=== PATIENT | male | born 1990 | race Caucasian/White ===

== ENCOUNTER 2020-01-02 23:23 | Emergency (ER) | payer BC ==
[2020-01-02] MEDS ORDERED: Famotidine 20 MG/2 ML SDV IVPUSH ONE (23:41)
[2020-01-02] MEDS ORDERED: diphenhydrAMINE 50 MG/ML SDV IVPUSH ONE (23:41)
[2020-01-02] MEDS ORDERED: methylPREDNISolone Sodium Succinate 125 MG/2 ML SDV IVPUSH ONE (23:41)
[2020-01-02] MEDS ORDERED: Sodium Chloride 0.9% 1,000 ML IV SCH (23:45)
--- NOTE | 2020-01-02 23:52 | EDM.PDOC ---
ED HPI GENERAL MEDICAL PROBLEM - General Chief Complaint: Allergic Reaction Stated Complaint: ALLERGIC REACTION Time Seen by Provider: 01/02/20 23:30 Source of Information: Reports: Patient, Family (spouse) History Limitations: Reports: No Limitations - History of Present Illness INITIAL COMMENTS - FREE TEXT/NARRATIVE: 29 year old male presents to the ED with acute onset of allergic reaction with generalized pruritus and erythema and 1 urticarial wheal on his left knee. Patient was prescribed Doxycycline and Benzatonate 200 mg tablets earlier today for persistent cough. He has an associated fever bodyaches headache and sounds like he has influenza symptoms but was not tested for this. Her studies been coughing paroxysmal he almost to the point of passing out since mid-September. This was the reason I believe that the provider decided to try him on a course of doxycycline. Doesn't remember being on either one of these medications. He states he developed symptoms within about 20 minutes of taking both medications at the same time. I looked in both upper and both can cause of course and allergic response and particularly the Benzatonate can cause a hypersensitivity reaction with generalized pruritus and erythema. He states he has itching in the back of his throat and up into his eustachian tubes in his ears. Minimal nasal coryza no trouble swallowing and no trouble breathing. He did have a breathing treatment at the clinic earlier today which is about 4 hours ago. He has no history of any allergies in the past. He has not taken any medications prior to coming to the ED. Onset: Today Onset Date: 01/02/20 Onset Time: 22:50 Duration: Minutes: Location: Reports: Generalized (Generalized pruritus and erythema.) Quality: Reports: Other ( Itching in his throat and into his eustachian tubes generalized pruritus ) Severity: Moderate Improves with: Reports: None Worsens with: Reports: None Context: Reports: Other (TakenMedication 20-25 minutes before development of symptoms which she has not taken before. This included both). Denies: Activity , Exercise, Lifting, Sick Contact, Trauma Associated Symptoms: Reports: Cough, cough w sputum (On a cough since September worse the last 2 days and sounds more productive.), Fever/Chills (Any sputum), Headaches ( current temperature 37.4 but it was 103 earlier today.), Loss of Appetite, Malaise, Shortness of Breath, Weakness. Denies: Confusion, Chest Pain , Nausea/Vomiting, Rash, Seizure, Syncope Treatments FLAGMAN: Reports: Other (see below) (Had albuterol earlier today.) - Related Data Allergies Allergy/AdvReac Type Severity Reaction Status Date / Time No Known Allergies Allergy Verified 01/02/20 23:34 Home Meds: Home Meds Benzonatate [Tessalon Perle] 100 mg PO TID PRN 01/02/20 [History] Codeine/guaiFENesin [Robitussin AC] 5 ml PO Q4H PRN 01/02/20 [History] Doxycycline [Vibramycin] 100 mg PO BID 01/02/20 [History] Azithromycin [Zithromax] 250 mg PO DAILY #12 tab 01/03/20 [Rx] predniSONE [Prednisone] 20 mg PO ASDIRECTED #18 tablet 01/03/20 [Rx] Past Medical History Respiratory History: Reports: Other (See Below) (As had paroxysmal cough to the point of near syncope since mid-September when he 17. Does not have a history of asthma.) Social & Family History - Family History Family Medical History: Noncontributory - Tobacco Use Smoking Status *Q: Never Smoker Second Hand Smoke Exposure: No - Caffeine Use Caffeine Use: Reports: Coffee - Recreational Drug Use Recreational Drug Use: No - Living Situation & Occupation Living situation: Reports: Single Occupation: Unemployed ED ROS ALLERGIC REACTION - Review of Systems Review Of Systems: See Below Constitutional: Reports: Fever, Chills, Malaise, Weakness, Fatigue, Decreased Appetite HEENT: Reports: Other (Paroxysmal cough with mild sore throat.) Respiratory: Reports: Shortness of Breath, Cough. Denies: Wheezing, Pleuritic Chest Pain Cardiovascular: Reports: No Symptoms Endocrine: Reports: No Symptoms GI/Abdominal: Reports: No Symptoms Musculoskeletal: Reports: No Symptoms Skin: Reports: Pruritis, Erythema (Added within the last hour.) Neurological: Reports: No Symptoms ( Use erythema with occasional urticarial wheals within the last hour.) Psychiatric: Reports: No Symptoms Hematologic/Lymphatic: Reports: No Symptoms ED EXAM GENERAL NO PERIP PULSE - Physical Exam Exam: See Below Exam Limited By: No Limitations General Appearance: Alert, WD/WN, Mild Distress, Other (Current temperature is 37.4 and he does feel warmer than this. Heart rate was 90 at the bedside. Respiratory 19 with O2 sats of 96% on room air. BP 172/89.) Eye Exam: Bilateral Eye: Normal Inspection, PERRL Ears: Normal TMs Nose: Normal Inspection Throat/Mouth: Normal Inspection, Normal Lips, Normal Oropharynx, Other Head: Atraumatic (Uvula and floor of the mouth are normal.), Normocephalic Neck: Normal Inspection, Supple, Non-Tender, Full Range of Motion. No: Lymphadenopathy (L), Lymphadenopathy (R) Respiratory/Chest: No Respiratory Distress, Lungs Clear, Normal Breath Sounds, No Accessory Muscle Use. No: Rales, Rhonchi, Wheezing Cardiovascular: Normal Peripheral Pulses, Regular Rate, Rhythm, No Edema, No Gallop, No Murmur, No Rub GI/Abdominal: Normal Bowel Sounds, Soft, Non-Tender, No Organomegaly, No Abnormal Bruit, No Mass, Pelvis Stable, Other (Mildly obese.) Back Exam: Normal Inspection, Full Range of Motion. No: CVA Tenderness (L), CVA Tenderness (R) Extremities: Normal Inspection Neurological: Alert, Oriented, CN II-XII Intact, Normal Cognition Psychiatric: Anxious Skin Exam: Warm (Mildly anxious.), Dry, Intact, Erythema (Diffuse mild erythema. ), Other (High left medial knee.) Course - Vital Signs Last Recorded V/S: Last Vital Signs Temp 37.4 C 01/02/20 23:30 Pulse 90 01/02/20 23:30 Resp 19 01/02/20 23:30 BP 172/89 H 01/02/20 23:30 Pulse Ox 96 01/02/20 23:30 - Orders/Labs/Meds Meds: Medications Discontinued Medications Generic Name Dose Route Start Last Admin Trade Name Steve PRN Reason Stop Dose Admin Dexamethasone 12 mg 01/02/20 23:53 01/03/20 00:03 Dexamethasone PO 01/02/20 23:54 12 mg ONETIME ONE Administration Diphenhydramine HCl 50 mg 01/02/20 23:41 01/03/20 00:20 Benadryl IVPUSH 01/02/20 23:42 Not Given ONETIME ONE Diphenhydramine HCl 50 mg 01/02/20 23:54 01/03/20 00:03 Benadryl PO 01/02/20 23:55 50 mg ONETIME ONE Administration Famotidine 20 mg 01/02/20 23:41 01/03/20 00:20 Pepcid IVPUSH 01/02/20 23:42 Not Given ONETIME ONE Famotidine 20 mg 01/02/20 23:54 01/03/20 00:03 Pepcid PO 01/02/20 23:55 20 mg ONETIME ONE Administration Sodium Chloride 1,000 mls @ 250 mls/hr 01/02/20 23:45 Normal Saline IV ASDIRECTED [facility] Methylprednisolone Sodium Succinate 125 mg 01/02/20 23:41 01/03/20 00:20 Solu-Medrol IVPUSH 01/02/20 23:42 Not Given ONETIME ONE - Radiology Interpretation Free Text/Narrative:: 29-year-old male presents to the ED with acute onset of allergic reaction symptoms after taking doxycycline-100mg and Bezatonate 200 mg tablet by mouth about 20 minutes before development of symptoms. Presents with generalized pruritus and erythema of his skin in a few hives scattered on his body particularly left medial knee. He doesn't remember being on either of these medications in the past. He was seen at the clinic earlier today and diagnosed with upper respiratory tract infection. He reports being ill for about 6 days with intermittent fever and worsening of cough. However reports a severe paroxysmal intermittent cough since mid-September often to the point of near syncope. History of asthma. Apparently he received an albuterol treatment at the clinic. At present he is showing only skin signs of allergic reaction lungs are clear to stage percussion without wheezing tongue and throat are normal. He is not hoarse. The plan was to give him intravenous Solu-Medrol, Pepcid, Benadryl but the nurses were unable to establish an IV and the patient declined further pokes. Therefore the medications will be given by mouth dexamethasone 12 mg by mouth with Benadryl 50 mg by mouth and Pepcid 20 mg by mouth. They will take much longer to work. Trade done in the ED and actually screen him for influenza as well. - Re-Assessments/Exams Free Text/Narrative Re-Assessment/Exam: 01/03/20 00:23 patient does not feel any worse in terms of throat closure or chest congestion or wheezing. Itching is slowly subsiding. Chest x-ray done portably reveals normal cardiac silhouette. There is no pulmonary infiltrates or pneumonia. There does appear to be a mild diffuse vascular congestion pattern. Influenza screen has returned as negative. Will monitor him in the ED for at least another half an hour to 45 minutes to ensure that his allergic responses coming under control. 01/03/20 00:44 He reports he continues to feel better not worse.Very mild pruritis in the back of his throat. I will therefore discharge him to home. Going to place him on Zithromax on a prolonged course of treatment due to suspect sinusitis with postnasal drip causing his paroxysmal cough. Due to fever and bronchitis symptoms I will treat him with 250 mils grams tablet once daily for the next 12 days. I'm also going to place him on prednisone 20 mg twice daily for 6 days then once in the morning for another 6 days to help reduce the severe paroxysmal cough. Advised that if he continues to cough paroxysmal course of oral inhaled corticosteroid such as Flovent 110 g per puff 2 puffs 4 times daily until the cough is gone for 3 days and then gradually wean off of the by 2 puffs every 2 days to alleviate irritant receptor formation causing paroxysmal severe cough to the point of syncope at times. Departure - Departure Time of Disposition: 00:52 Disposition: Home, Self-Care 01 Condition: Fair Clinical Impression: Allergic reaction to drug Qualifiers: Encounter type: initial encounter Qualified Code(s): T78.40XA - Allergy, unspecified, initial encounter - Discharge Information *PRESCRIPTION DRUG MONITORING PROGRAM REVIEWED*: Not Applicable *COPY OF PRESCRIPTION DRUG MONITORING REPORT IN PATIENT ERIK: Not Applicable Prescriptions: Azithromycin [Zithromax] 250 mg PO DAILY #12 tab predniSONE [Prednisone] 20 mg PO ASDIRECTED #18 tablet Instructions: Hives Referrals: Tonie Escobar PA-C [Primary Care Provider] - Forms: ED Department Discharge Additional Instructions: Evaluation the emergency room this morning in regards to development of an acute allergic response to medication taken 20 minutes prior to development of generalized itching and erythema or redness of the skin with a few hives. Largest in medications. It's unlikely to be the doxycycline causing the problem however I cannot be 100% sure of this. The Benzatonate cough tablet or Tessalon Perles is likely the culprit to have caused your allergic response. Influenza screen proved to be negative and chest x-ray is negative for pneumonia therefore you have a diagnosis of bronchitis. I agree with a course of antibiotic treatment likely due to sinus infection with postnasal drip continued to cause you to cough since September last year. Current fever is likely due to bronchitis for chest infection. Suggest treatment with steroid prednisone 20 mg in the morning with breakfast and with supper for 6 days and then once in the morning only for another 6 days. This is being used for 2 reasons able to bring the drug eruption under control and also help with your cough and inflammation of your upper airways. Suggest use of antibiotic Zithromax 250 mg tablet once daily for 12 days to clear up sinus infection as well as bronchitis. If you continue to cough after this then I would suggest follow-up with your personal care provider to obtain a steroid inhaler such as Flovent 110 g per puff and use 2 puffs 4 times daily until the cough goes away completely for 3 days and then gradually wean off the inhaler. The steroid inhalational treatment helps reduce the irritant receptors in the upper airway which caused you to cough so severely. However there is a really good chance that the oral steroids will reduce the inflammation and you may not need an inhaler. Sepsis Event Note - Evaluation Sepsis Screening Result: No Definite Risk - Focused Exam Date Exam was Performed: 01/05/20 Time Exam was Performed: 07:54
[2020-01-02] MEDS ORDERED: Dexamethasone 4 MG Tab PO ONE (23:53)
[2020-01-02] MEDS ORDERED: diphenhydrAMINE 50 MG Cap PO ONE (23:54)
[2020-01-02] MEDS ORDERED: Famotidine 20 MG Tab PO ONE (23:54)
--- NOTE | 2020-01-03 07:51 | CR ---
Chest: Portable view of the chest was obtained. Comparison: Prior chest x-ray of 01/13/14. Heart size and mediastinum are normal. Lungs are clear with no acute parenchymal change. Bony structures are grossly intact. Impression: 1. Nothing acute is appreciated on portable chest x-ray. Diagnostic code #1 This report was dictated in [place] Standard Time
== END 2020-01-03 01:04 | disposition home or self-care (01) ==
LOC: JD.ED 23:23
DX: L29.9 Pruritus, unspecified (principal); J45.909 Unspecified asthma, uncomplicated; T48.3X5A Adverse effect of antitussives, initial encounter; T36.4X5A Adverse effect of tetracyclines, initial encounter
CPT/HCPCS: 71045; 87804; 99283; A9270; J8540

== ENCOUNTER 2020-05-17 01:35 | Emergency (ER) | payer BC ==
--- NOTE | 2020-05-17 01:44 | EDM.PDOCBH ---
ED HPI GENERAL MEDICAL PROBLEM - General Chief Complaint: Drug or Alcohol Abuse Stated Complaint: [facility] Time Seen by Provider: 05/17/20 01:39 Source of Information: Reports: Patient, EMS History Limitations: Reports: No Limitations - History of Present Illness INITIAL COMMENTS - FREE TEXT/NARRATIVE: This is a 29-year-old male who went out with his friends this evening and decided he was going to drink a bunch of beer. On his way home he got tired and could not make it into the house so he laid down outside. Supposedly he was in and out of consciousness though he was breathing and the ambulance was called. When they bring him to the ER he says he just wants someone to get him up into his bedroom so he can sleep. He is awake he knows he is at the hospital and he denies any other acute problems other than he says he drunk too much this evening. He denies any other acute symptoms. - Related Data Allergies Allergy/AdvReac Type Severity Reaction Status Date / Time No Known Allergies Allergy Verified 05/17/20 01:44 Home Meds: Home Meds Phentermine HCl 37.5 mg PO DAILY 05/17/20 [History] Past Medical History Respiratory History: Reports: Other (See Below) (As had paroxysmal cough to the point of near syncope since mid-September when he 17. Does not have a history of asthma.) Social & Family History - Family History Family Medical History: Noncontributory - Caffeine Use Caffeine Use: Reports: Coffee - Living Situation & Occupation Living situation: Reports: Single Occupation: Unemployed ED ROS GENERAL - Review of Systems Review Of Systems: Unable To Obtain Reason Not Obtained: The patient is inebriated at this time ED EXAM, BEHAVIORAL HEALTH - Physical Exam Exam: See Below Exam Limited By: Intoxication General Appearance: Alert, WD/WN, No Apparent Distress Eye Exam: Bilateral Eye: Normal Inspection Ears: Normal External Exam Nose: Normal Inspection Throat/Mouth: Normal Lips, Normal Voice, No Airway Compromise Head: Normocephalic Neck: Supple Respiratory/Chest: No Respiratory Distress, Lungs Clear, Normal Breath Sounds Cardiovascular: Regular Rate, Rhythm, No Murmur GI/Abdominal: Soft, Other (He denies any abdominal tenderness) Back Exam: Normal Inspection, Full Range of Motion Extremities: Normal Inspection, Normal Range of Motion Neurological: No Motor/Sensory Deficits Psychiatric: Other (Patient is somnolent but he is easy to arouse with verbal stimulation) Skin Exam: Warm, Dry COURSE, BEHAVIORAL HEALTH COMP - Course Vital Signs: Last Vital Signs Temp 97 F 05/17/20 01:42 Pulse 82 05/17/20 01:42 Resp 14 05/17/20 01:42 BP 117/99 H 05/17/20 01:42 Pulse Ox 96 05/17/20 01:42 Orders, Labs, Meds: Active Orders 24 hr Category Date Time Status Sodium Chloride 0.9% [Normal Saline] 1,000 ml Med 05/17/20 01:45 Active IV ASDIRECTED Sodium Chloride 0.9% [Normal Saline] 1,000 ml Med 05/17/20 03:15 Active IV ASDIRECTED Medication Orders Sodium Chloride (Normal Saline) 1,000 mls @ 1,000 mls/hr IV ASDIRECTED ZACK Last Admin: 05/17/20 01:53 Dose: 1,000 mls/hr Documented by: JASMYN Sodium Chloride (Normal Saline) 1,000 mls @ 999 mls/hr IV ASDIRECTED ZACK Last Admin: 05/17/20 03:04 Dose: 999 mls/hr Documented by: JACQUI Laboratory Tests 05/17/20 Range/Units 01:50 Ethyl Alcohol 0.21 (0.00) gm% Medications Generic Name Dose Route Start Last Admin Trade Name Freq PRN Reason Stop Dose Admin Sodium Chloride 1,000 mls @ 1,000 mls/hr 05/17/20 01:45 05/17/20 01:53 Normal Saline IV 1,000 mls/hr ASDIRECTED ZACK Administration Sodium Chloride 1,000 mls @ 999 mls/hr 05/17/20 03:15 05/17/20 03:04 Normal Saline IV 999 mls/hr ASDIRECTED ZACK Administration Discontinued Medications Generic Name Dose Route Start Last Admin Trade Name Freq PRN Reason Stop Dose Admin Ondansetron HCl 4 mg 05/17/20 01:53 05/17/20 01:57 Zofran IVPUSH 05/17/20 01:54 4 mg ONETIME ONE Administration Discharge vs Psych Eval/Treatment:: 05/17/20 03:21 The patient was able to get up walk to the bathroom do his thing and get back to the room with no difficulty. His significant other is here with him now and she is willing to take him home. We will discharge him at this time. Departure - Departure Time of Disposition: 03:21 Disposition: Home, Self-Care 01 Condition: Fair Clinical Impression: Acute alcohol intoxication Qualifiers: Complication of substance-induced condition: uncomplicated Qualified Code(s): F10.920 - Alcohol use, unspecified with intoxication, uncomplicated - Discharge Information *PRESCRIPTION DRUG MONITORING PROGRAM REVIEWED*: Not Applicable *COPY OF PRESCRIPTION DRUG MONITORING REPORT IN PATIENT ERIK: Not Applicable Instructions: Alcohol Intoxication, [id number] Referrals: PCP,None [Primary Care Provider] - Forms: ED Department Discharge Additional Instructions: When you get home sleep as long as you can today, no more alcohol for the next 24 hours, drink lots of fluids to help with a hangover, return to the ER if needed Sepsis Event Note (ED) - Focused Exam Vital Signs: Vital Signs Temp Pulse Resp BP Pulse Ox 05/17/20 01:42 97 F 82 14 117/99 H 96 - My Orders Last 24 Hours: My Active Orders 05/17/20 01:45 Sodium Chloride 0.9% [Normal Saline] 1,000 ml IV ASDIRECTED 05/17/20 03:15 Sodium Chloride 0.9% [Normal Saline] 1,000 ml IV ASDIRECTED - Assessment/Plan Last 24 Hours: My Active Orders 05/17/20 01:45 Sodium Chloride 0.9% [Normal Saline] 1,000 ml IV ASDIRECTED 05/17/20 03:15 Sodium Chloride 0.9% [Normal Saline] 1,000 ml IV ASDIRECTED
[2020-05-17] MEDS ORDERED: Sodium Chloride 0.9% 1,000 ML IV SCH ×2 (01:45→03:15)
[2020-05-17] MEDS ORDERED: Ondansetron 4 MG/2 ML SDV IVPUSH ONE (01:53)
== END 2020-05-17 03:29 | disposition home or self-care (01) ==
LOC: JD.ED 01:35
DX: F10.120 Alcohol abuse with intoxication, uncomplicated (principal); R40.0 Somnolence
CPT/HCPCS: 36415; 80307; 96374; 99284; J2405; J7030; 99283

== ENCOUNTER 2020-07-29 23:49 | Emergency (ER) | payer BC ==
[2020-07-30] MEDS ORDERED: Aspirin 81 MG Tab.Chew PO ONE (00:06)
[2020-07-30] MEDS ORDERED: Ketorolac 30 MG/ML SDV IVPUSH ONE (00:06)
--- NOTE | 2020-07-30 00:07 | EDM.PDOC ---
ED HPI GENERAL MEDICAL PROBLEM - General Chief Complaint: Chest Pain Stated Complaint: CHEST PAIN Time Seen by Provider: 07/30/20 00:05 Source of Information: Reports: Patient History Limitations: Reports: No Limitations - History of Present Illness INITIAL COMMENTS - FREE TEXT/NARRATIVE: 29-year-old male attends the ED complaining of left precordial chest pain. He states it awoke him from sleep around 2230 hrs. after he had gone to bed he describes the pain is intermittent sharp stabbing with a dull achy discomfort. It does not radiate through to his neck back or shoulder. He has never experienced this type of pain or discomfort before. Is not associated with any burping or belching although he does have a history of GERD and takes antacids on a as needed basis. He started Vyvanse yesterday for the first time for attention deficit disorder. Prior to this he has been using phentermine dosage unknown on a intermittent basis to help lose weight. He is a never smoker. He has no family history of heart disease. He does not know what his cholesterol status is. He denies the pain worsening with deep breathing. He denies cough or sputum production. No fever or chills. No known exposure to COVID-19 virus. 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 Onset: Sudden Onset Date: 07/29/20 Onset Time: 22:30 Duration: Minutes:, Constant, Getting Worse Location: Reports: Chest (Left upper precordial chest.) Quality: Reports: Ache, Sharp, Stabbing (A dull achy discomfort but most of the pain is sharp and stabbing episodic) Severity: Moderate Improves with: Reports: None Worsens with: Reports: None Context: Denies: Activity, Exercise, Lifting, Sick Contact, Trauma, Other Associated Symptoms: Reports: No Other Symptoms, Chest Pain. Denies: Confusion, Cough, cough w sputum, Diaphoresis, Fever/Chills, Headaches, Loss of Appetite, Malaise, Nausea/Vomiting, Rash, Seizure, Shortness of Breath, Syncope, Weakness Treatments [employer]MED SECURITY PROFESSIONAL: Reports: Other (see below) (None.) Left Chest Pain Score (Numeric/FACES): 8 - Related Data Allergies Allergy/AdvReac Type Severity Reaction Status Date / Time No Known Allergies Allergy Verified 09/10/20 00:00 Home Meds: Home Meds Lisdexamfetamine [Vyvanse] 30 mg PO DAILY 07/30/20 [History] Terbinafine [LamISIL] 250 mg PO DAILY 07/30/20 [History] Past Medical History - Past Health History Medical/Surgical History: Denies Medical/Surgical History Respiratory History: Reports: Asthma Gastrointestinal History: Reports: GERD (Intermittent problems for which he uses oral antacids. He has taken Protonix in the past) Psychiatric History: Reports: ADHD Endocrine/Metabolic History: Reports: Obesity/BMI 30+ Social & Family History - Family History Family Medical History: Noncontributory - Tobacco Use Smoking Status *Q: Never Smoker - Caffeine Use Caffeine Use: Reports: Coffee - Recreational Drug Use Recreational Drug Use: No - Living Situation & Occupation Living situation: Reports: Single Occupation: Unemployed ED ROS GENERAL - Review of Systems Review Of Systems: See Below Constitutional: Denies: Fever, Chills, Malaise, Weakness, Fatigue, Decreased Appetite, Weight Loss HEENT: Reports: Glasses Respiratory: Reports: No Symptoms. Denies: Shortness of Breath, Wheezing, Pleuritic Chest Pain, Cough Cardiovascular: Reports: Chest Pain, Dyspnea on Exertion (On occasion due to his size.). Denies: Blood Pressure Problem (See history of present illness), Claudication, Edema, Lightheadedness, Orthopnea Endocrine: Reports: Fatigue GI/Abdominal: Reports: No Symptoms : Reports: Frequency Musculoskeletal: Reports: Back Pain, Joint Pain Skin: Reports: No Symptoms (Knees hips neck at times) Neurological: Reports: No Symptoms Psychiatric: Reports: No Symptoms Hematologic/Lymphatic: Reports: No Symptoms Immunologic: Reports: No Symptoms ED EXAM, GENERAL - Physical Exam Exam: See Below Exam Limited By: No Limitations General Appearance: Alert, WD/WN, No Apparent Distress, Other (Temperature is 36.3. Heart rate 85 and sinus respiratory is 18 with O2 sats of 100% on room air BP 103/82. Second 1 came back at 124/84.) Eye Exam: Bilateral Eye: Normal Inspection, PERRL Throat/Mouth: Normal Inspection, Normal Lips, Normal Teeth, Normal Oropharynx Head: Atraumatic, Normocephalic Neck: Normal Inspection, Supple, Non-Tender, Full Range of Motion. No: Carotid Bruit, Lymphadenopathy (L), Lymphadenopathy (R) Respiratory/Chest: No Respiratory Distress, Lungs Clear, Normal Breath Sounds, No Accessory Muscle Use, Chest Non-Tender, Other (I could not elicit any chest pain on firm compression of the sternum the costochondral joints or the ribs in the midclavicular line on either side.) Cardiovascular: Normal Peripheral Pulses, Regular Rate, Rhythm, No Murmur, No Rub Peripheral Pulses: 2+: Posterior Tibial (L), Posterior Tibial (R), Dorsalis Pedis (L), Dorsalis Pedis (R), 3+: Carotid (L), Carotid (R) GI/Abdominal: Normal Bowel Sounds, Soft, Non-Tender, No Organomegaly, No Abnormal Bruit, No Mass, Pelvis Stable, Other (No surgical scars) (Male) Exam: No Hernia ( limited ability to palpate solid organs.) Back Exam: Normal Inspection, Full Range of Motion. No: CVA Tenderness (L), CVA Tenderness (R) Extremities: Normal Inspection, Normal Range of Motion, Non-Tender, Pedal Edema Neurological: Alert, Oriented, CN II-XII Intact, Normal Cognition Psychiatric: Normal Affect, Normal Mood Skin Exam: Warm, Dry, Intact, Normal Color, No Rash EKG INTERPRETATION EKG Date: 07/29/20 Time: 23:55 Rhythm: NSR Rate (Beats/Min): 76 Gilbert: Normal P-Wave: Present QRS: Other (Early R wave transition consider right ventricular appear to be versus septal hypertrophy pattern. There is a left ventricular hypertrophy pattern.) ST-T: Other (Diffuse early repolarization pattern in lead V2 V3 less likely ST segment elevation. No reciprocal changes evident. T wave flattening in aVF nonspecific finding) EKG Interpretation Comments: [place]line ECG Course - Vital Signs Last Recorded V/S: Last Vital Signs Temp 36.3 C 07/29/20 23:57 Pulse 85 07/29/20 23:57 Resp 18 07/29/20 23:57 BP 103/82 07/29/20 23:57 Pulse Ox 100 07/29/20 23:57 - Orders/Labs/Meds Orders: Active Orders 24 hr Category Date Time Status Chest 1V Frontal [CR] Stat Exams 07/30/20 00:05 Taken CKMB [CHEM] Stat Lab 07/30/20 00:20 Received COMPREHENSIVE METABOLIC PN,CMP [CHEM] Stat Lab 07/30/20 00:20 Received CRP [C-REACTIVE PROTEIN] [CHEM] Stat Lab 07/30/20 00:20 Received MAGNESIUM [CHEM] Stat Lab 07/30/20 00:20 Received TROPONIN I [CHEM] Stat Lab 07/30/20 00:20 Received Sodium Chloride 0.9% [Normal Saline] 1,000 ml Med 07/30/20 00:15 Active IV ASDIRECTED Medication Orders Sodium Chloride (Normal Saline) 1,000 mls @ 150 mls/hr IV ASDIRECTED ZACK Last Admin: 07/30/20 00:26 Dose: 150 mls/hr Documented by: JHONNY Labs: Laboratory Tests 07/30/20 07/30/20 Range/Units 00:20 00:20 WBC 10.37 H (4.23-9.07) K/mm3 RBC 4.78 (4.63-6.08) M/mm3 Hgb 13.5 L (13.7-17.5) gm/dl Hct 41.9 (40.1-51.0) % MCV 87.7 (79.0-92.2) fl MCH 28.2 (25.7-32.2) pg MCHC 32.2 (32.2-35.5) g/dl RDW Std Deviation 43.6 (35.1-43.9) fL Plt Count 268 (163-337) K/mm3 MPV 9.0 L (9.4-12.3) fl Neut % (Auto) 44.6 (34.0-67.9) % Lymph % (Auto) 42.7 (21.8-53.1) % [place] % (Auto) 6.8 (5.3-12.2) % Eos % (Auto) 5.2 (0.8-7.0) Baso % (Auto) 0.5 (0.1-1.2) % Neut # (Auto) 4.63 (1.78-5.38) K/mm3 Lymph # (Auto) 4.43 H (1.32-3.57) K/mm3 [place] # (Auto) 0.70 (0.30-0.82) K/mm3 Eos # (Auto) 0.54 (0.04-0.54) K/mm3 Baso # (Auto) 0.05 (0.01-0.08) K/mm3 Manual Slide Review Normal smear PT 9.8 (9.7-11.7) SECONDS INR < 0.93 APTT 25 (22-31) SECONDS Meds: Medications Generic Name Dose Route Start Last Admin Trade Name Steve PRN Reason Stop Dose Admin Sodium Chloride 1,000 mls @ 150 mls/hr 07/30/20 00:15 07/30/20 00:26 Normal Saline IV 150 mls/hr ASDIRECTED ZACK Administration Discontinued Medications Generic Name Dose Route Start Last Admin Trade Name Steve PRN Reason Stop Dose Admin Aspirin 324 mg 07/30/20 00:06 07/30/20 00:26 Aspirin PO 07/30/20 00:07 324 mg ONETIME ONE Administration Nitroglycerin/Dextrose Confirm 07/30/20 01:24 Nitroglycerin 25 Mg/D5w 250 Ml Administered 07/30/20 01:25 Dose 25 mg in 250 mls @ as directed .ROUTE .STK-MED ONE Ketorolac Tromethamine 30 mg 07/30/20 00:06 07/30/20 00:27 Toradol IVPUSH 07/30/20 00:07 30 mg ONETIME ONE Administration - Radiology Interpretation Free Text/Narrative:: 29-year-old male presents to the ED awakening from sleep at about 20 to 30 hours mom standard time with left upper anterior precordial chest pain which is mostly sharp and stabbing and intermittent but does have a dull achy discomfort. No radiation of the pain. I could find no chest wall pain to account for his current pain syndrome. Plan he will have IV started and normal saline at 150 mils per hour. His pain suggest musculoskeletal in origin I will give him Toradol 30 mg IV. He will have routine labs carried out including cardiac markers. A chest x-ray solitary view portably will be done. - Re-Assessments/Exams Free Text/Narrative Re-Assessment/Exam: 07/30/20 00:55: X-ray done portably is completely normal with normal lung fernandez no signs of pneumonia ribs appear normal cardiac silhouette is normal there is no signs of vascular congestion. 07/30/20 01:34:Lab work reveals a white count of 10.37 slightly elevated. Auto differential shows 44.6% neutrophils and 42.7% lymphocytes suggesting a mild viral infection. Hemoglobin is 13.5 with hematocrit of 41.9. Review of the smear reported to be normal. PT was 9.8 with an INR of 0.93 PTT is 25. Patient reports little relief from the Toradol given intravenously. Still having intermittent sharp stabbing pain and dull achy discomfort in the left precordium. The lab called over and indicated that his initial troponin was elevated at 0.768 which would be about 12 times normal as normal our lab is up to 0.56. Therefore I have ordered a CK-MB fraction and a d-dimer. I will start the patient on nitroglycerin drip at 10 mcg/min to see if this provides any benefit. 07/30/20 01:55: Second ECG is essentially unchanged from the first. Which shows sinus rhythm at 65/min with early R wave transition combined with right ventricular appear to be versus septal hypertrophy pattern there appears to be a left ventricular hypertrophy pattern. There is diffuse early R wave transition in leads V2 V3 versus ST segment elevation. There is perhaps more flattening of the T wave in V5 V6 and slight inversion in aVF. The QT interval is mildly prolonged at 470. Plan he will have repeat cardiac markers performed at 0200 hrs. with a CK-MB and troponin I palate value. 07/30/20 02;55: Second troponin I came back elevated at 0.738 slightly less than before. The initial CK-MB fraction was 3.2 and it dropped to 2.8. Patient however continues to have left precordial chest discomfort although improved since the nitroglycerin drip. Will have a third ECG carried out. 07/30/20 03:00: ECG #3 shows sinus rhythm at 76/min. Early repolarization pattern appreciated V2 V3 although there is perhaps slight Remy increased ST segment elevation therefore 1 cannot rule out an acute anteroseptal myocardial infarction. There is a left ventricular hypertrophy pattern. The early repolarization pattern suggests right ventricular hypertrophy versus septal hypertrophy pattern. QTc remains mildly prolonged. The persistence of his elevated troponin and no other abnormalities. D-dimer was slightly elevated at 0.67 with normal our lab being up to 0.56. Further labs will be done to rule out atypical COVID presentation in the COVID-19 test will be done. I spoke with the 1 call nurse at [facility] in [place] and also spoke with Dr. Nieto account review specialist and eventually Dr. Quick hospitalist who is excepted care of this patient. Because of his markedly elevated troponin for no good reason he needs to have coronary artery disease ruled out. He will therefore be sent to that facility per ground ambulance. Nitroglycerin drip will be continued at 10 mcg/min. Patient appears to be in no distress and is quite comfortable. Departure - Departure Time of Disposition: 03:30 Disposition: DC/Tfer to [facility] 02 Reason for Transfer *Q: Other Condition: Fair Clinical Impression: Chest pain at rest, Elevated troponin I measurement, Abnormal resting ECG findings Referrals: Tonie Escobar PA-C [Primary Care Provider] - Forms: ED Department Discharge Additional Instructions: Patient transferred to [facility] in [place] for further cardiology evaluation due to atypical presentation for acute coronary syndrome. Significant elevation of the troponin I appreciated. Minimal changes on ECG x3 over a period of 2-1/2 hours. Care accepted by Dr. Quick--hospitalist after speaking with Dr. Nieto from the department of cardiology. Sepsis Event Note (ED) - Evaluation Sepsis Screening Result: No Definite Risk - Focused Exam Vital Signs: Vital Signs Temp Pulse Resp BP Pulse Ox 07/29/20 23:57 36.3 C 85 18 103/82 100 - My Orders Last 24 Hours: My Active Orders 07/30/20 00:05 Chest 1V Frontal [CR] Stat 07/30/20 00:15 Sodium Chloride 0.9% [Normal Saline] 1,000 ml IV ASDIRECTED 07/30/20 00:20 CKMB [CHEM] Stat COMPREHENSIVE METABOLIC PN,CMP [CHEM] Stat CRP [C-REACTIVE PROTEIN] [CHEM] Stat MAGNESIUM [CHEM] Stat TROPONIN I [CHEM] Stat - Assessment/Plan Last 24 Hours: My Active Orders 07/30/20 00:05 Chest 1V Frontal [CR] Stat 07/30/20 00:15 Sodium Chloride 0.9% [Normal Saline] 1,000 ml IV ASDIRECTED 07/30/20 00:20 CKMB [CHEM] Stat COMPREHENSIVE METABOLIC PN,CMP [CHEM] Stat CRP [C-REACTIVE PROTEIN] [CHEM] Stat MAGNESIUM [CHEM] Stat TROPONIN I [CHEM] Stat
[2020-07-30] MEDS ORDERED: Sodium Chloride 0.9% 1,000 ML IV SCH (00:15)
[2020-07-30] MEDS ORDERED: Nitroglycerin/D5W 25 MG/250 ML BOTTLE ONE (01:24)
--- NOTE | 2020-07-30 08:42 | CR ---
Chest: Portable view of the chest was obtained. Comparison: Prior chest x-ray of 01/02/20. Heart size and mediastinum are normal. Lungs are clear with no acute parenchymal change. Bony structures are grossly intact. Impression: 1. Nothing acute is seen on portable chest x-ray. Diagnostic code #1 This report was dictated in MDT
== END 2020-07-30 04:28 ==
LOC: JD.ED 23:49
DX: R07.2 Precordial pain (principal); R79.89 Other specified abnormal findings of blood chemistry; R94.31 Abnormal electrocardiogram [ECG] [EKG]; J45.909 Unspecified asthma, uncomplicated; E66.9 Obesity, unspecified; Z79.899 Other long term (current) drug therapy; Z68.36 Body mass index [BMI] 36.0-36.9, adult; Z20.828 Contact with and (suspected) exposure to other viral communicable diseases
CPT/HCPCS: 36415; 71045; 80053; 82553; 82728; 83615; 83735; 83880; 84443; 84484; 85025; 85379; 85610; 85730; 86140; 87635; 96361; 96374; 99285; A9270; J1885; J3490; J7030; 93010; U0002

== ENCOUNTER 2021-07-02 00:18 | Emergency (ER) | payer BC ==
--- NOTE | 2021-07-02 00:39 | EDM.PDOC ---
ED HPI GENERAL MEDICAL PROBLEM - General Chief Complaint: Chest Pain Stated Complaint: CHEST PAIN/HEADACHE Time Seen by Provider: 07/02/21 00:38 - History of Present Illness INITIAL COMMENTS - FREE TEXT/NARRATIVE: Patient left without being seen - Related Data Allergies Allergy/AdvReac Type Severity Reaction Status Date / Time No Known Allergies Allergy Verified 07/30/20 00:00 Home Meds: Home Meds Lisdexamfetamine [Vyvanse] 30 mg PO DAILY 07/30/20 [History] Terbinafine [LamISIL] 250 mg PO DAILY 07/30/20 [History] Past Medical History - Past Health History Medical/Surgical History: Denies Medical/Surgical History Respiratory History: Reports: Asthma Gastrointestinal History: Reports: GERD (Intermittent problems for which he uses oral antacids. He has taken Protonix in the past) Psychiatric History: Reports: ADHD Endocrine/Metabolic History: Reports: Obesity/BMI 30+ Social & Family History - Family History Family Medical History: No Pertinent Family History - Caffeine Use Caffeine Use: Reports: Coffee - Living Situation & Occupation Living situation: Reports: Single Occupation: Unemployed ED ROS GENERAL - Review of Systems Review Of Systems: See Below Reason Not Obtained: Patient left without being seen ED EXAM, GENERAL - Physical Exam Exam: See Below Reason Not Obtained: Patient left without being seen #1 Interpretation EKG Date: 07/02/21 Rhythm: NSR Rate (Beats/Min): 66 [place]: Normal P-Wave: Present QRS: Other (Early transition pattern suggestive of LVH) ST-T: Other (ST elevation V1 V2 no reciprocal changes no significant change from 07/29/2020) Comparison: No Change (No significant change from 07/29/2020) EKG Interpretation Comments: Abnormal EKG Departure - Departure Time of Disposition: 00:50 Disposition: Against Medical Advice 07 Clinical Impression: Shortness of breath - Discharge Information Referrals: Tonie Escobar PA-C [Primary Care Provider] - Forms: ED Department Discharge
== END 2021-07-02 01:00 | disposition left against medical advice (07) ==
LOC: JD.ED 00:18
DX: R06.02 Shortness of breath (principal); Z53.21 Procedure and treatment not carried out due to patient leaving prior to being seen by health care provider
CPT/HCPCS: 93010

== ENCOUNTER 2021-12-01 14:33 | Emergency (ER) | payer BC ==
[2021-12-01] MEDS ORDERED: Sodium Chloride 0.9% 10 ML Syringe FLUSH PRN (14:45)
[2021-12-01] MEDS ORDERED: Aspirin 81 MG Tab.Chew PO ONE (14:53)
[2021-12-01] MEDS ORDERED: Heparin Sodium 5,000 Units/ML Vial IVPUSH ONE ×2 (15:48→21:34)
[2021-12-01 15:53] LABS: CORONAVIRUS COVID-19 NAA NEGATIVE (NEGATIVE)
[2021-12-01] MEDS ORDERED: Iopamidol 755 Mg/ML 100 ML Bottle IVPUSH ONE (15:56)
[2021-12-01] MEDS ORDERED: Sodium Chloride 0.9% 100 ML IV SCH (16:00)
[2021-12-01] MEDS: Heparin Sodium/D5W 25,000 UNITS/500 ML BAG IV SCH (16:23)
[2021-12-01] MEDS ORDERED: Clopidogrel 75 MG Tab PO ONE (18:29)
[2021-12-01] MEDS ORDERED: Rosuvastatin 10 MG Tab PO ONE (18:29)
[2021-12-01] MEDS ORDERED: Metoprolol Succinate 25 MG Tab.ER PO ONE (18:29)
[2021-12-01 19:48] LABS: HEMOGLOBIN A1C 6.3 %
[2021-12-02] MEDS: Heparin Sodium/D5W 25,000 UNITS/500 ML BAG IV SCH (06:28)
== END 2021-12-02 10:30 ==
LOC: JD.ED 14:33
DX: I21.4 Non-ST elevation (NSTEMI) myocardial infarction (principal); I25.2 Old myocardial infarction; Z20.822 Contact with and (suspected) exposure to COVID-19
CPT/HCPCS: 0241U; 36415; 71045; 71275; 80053; 80307; 83036; 83735; 83880; 84484; 85025; 85379; 85610; 85730; 93005; 96365; 96366; 99285; A9270; J1644; Q9967; 99284

== ENCOUNTER 2024-10-15 01:10 | Emergency (ER) | payer BC ==
[2024-10-15] MEDS ORDERED: Sodium Chloride 0.9% 10 ML Syringe FLUSH PRN (01:29)
[2024-10-15 01:39] LABS: BASOPHILS ABSOLUTE AUTO 0.1 K/mm3 (0.0-0.2); BASOPHILS PERCENT AUTO 0.5 % (0.0-1.0); EOSINOPHILS ABSOLUTE AUTO 0.5 K/mm3 (0.0-0.4); EOSINOPHILS PERCENT AUTO 4.7 % (0.0-6.0); HEMATOCRIT 51.3 % (42.0-52.0); IMMATURE GRAN ABSOLUTE AUTO 0.02 K/mm3 (0.00-0.05); IMMATURE GRAN PERCENT AUTO 0.2 % (0.0-0.4); LYMPHOCYTES ABSOLUTE AUTO 5.4 K/mm3 (1.0-4.8); LYMPHOCYTES PERCENT AUTO 47.9 % (24.0-44.0); MEAN CORPUSCULAR HEMOGLOBIN 28.9 pg (28.0-32.0); MEAN CORPUSCULAR HGB CONC 33.1 g/dl (32.0-36.0); MEAN CORPUSCULAR VOLUME 87.2 fl (83.0-99.0); MEAN PLATELET VOLUME 8.7 fl (9.4-12.4); MONOCYTES ABSOLUTE AUTO 0.8 K/mm3 (0.0-0.8); MONOCYTES PERCENT AUTO 6.8 % (0.0-8.0); NEUTROPHILS ABSOLUTE AUTO 4.5 K/mm3 (1.8-7.7); NEUTROPHILS PERCENT AUTO 39.9 % (41.0-71.0); PLATELET COUNT,PLT 232 K/mm3 (150-400); RED BLOOD CELL COUNT 5.88 M/mm3 (4.52-5.90); WHITE BLOOD CELL COUNT,WBC 11.21 K/mm3 (3.9-11.3)
[2024-10-15] MEDS: Aspirin 81 MG Tab.Chew PO ONE (01:52)
[2024-10-15 01:54] LABS: A/G RATIO 1.1 (1-2); ALBUMIN 4.3 g/dl (3.4-5.0); ANION GAP 12.7 (5-15); BILIRUBIN TOTAL 0.6 mg/dL (0.2-1.0); BUN/CREATININE RATIO 9.3 (14-18); CALCIUM 10.2 mg/dL (8.5-10.1); CREATININE 1.5 mg/dL (0.7-1.3); EST CRCL DRUG DOSING (CG) 88.01 mL/min; POTASSIUM,K 3.7 mEq/L (3.5-5.1); PROTEIN TOTAL,TP 8.3 g/dl (6.4-8.2)
[2024-10-15 01:59] LABS: SLIDE REVIEW ABNORMAL SMEAR
[2024-10-15] MEDS: Aspirin 81 MG Tab.Chew ONE (02:12)
[2024-10-15] MEDS ORDERED: Heparin Sodium/D5W 250 ML IV SCH (02:45)
[2024-10-15] MEDS: Heparin Sodium 5,000 Units/ML Vial IVPUSH ONE (02:56)
[2024-10-15] MEDS: Heparin Sodium/D5W 250 ML IV SCH (02:58)
== END 2024-10-15 03:45 ==
LOC: JD.ED 01:10
DX: I21.4 Non-ST elevation (NSTEMI) myocardial infarction (principal); R79.89 Other specified abnormal findings of blood chemistry; J45.909 Unspecified asthma, uncomplicated; I25.2 Old myocardial infarction; E66.9 Obesity, unspecified; Z68.35 Body mass index [BMI] 35.0-35.9, adult
CPT/HCPCS: 36415; 71045; 80053; 83690; 83880; 84484; 85025; 93005; 96365; 99285; A9270; J1644; 93010